=== PATIENT | male | born 1955 | race Caucasian/White ===

== ENCOUNTER → 2017-06-01 | Outpatient (CLI) | payer BC, OTHER ==
[~2017-06-01] MED LIST: HYDROCODON-ACE1 EAC5 PO; MELOXICAM7.5 MG PO; MOBIC7.5 MG PO; TIZANIDINE HCL 22 M1 PO; VOLTAREN GEL 1100 G1 TOP; ZANAFLEX2 M1 PO
== END ==
LOC: RAD 10:38
DX: J45.41 Moderate persistent asthma with (acute) exacerbation (principal); J98.11 Atelectasis; R91.8 Other nonspecific abnormal finding of lung field

== ENCOUNTER → 2018-01-18 | Outpatient (CLI) | payer BC, OTHER | LOC: RAD 09:01 → SPEECH 09:01 → RAD 15:48 | DX: R13.12 Dysphagia, oropharyngeal phase (principal); R05 Cough; R06.00 Dyspnea, unspecified; R06.2 Wheezing ==

== ENCOUNTER → 2020-02-16 | Outpatient (CLI) | payer OTHER | LOC: RAD 13:45 | PROVIDERS: ATTEND Internal Medicine | DX: J45.30 Mild persistent asthma, uncomplicated (principal) ==

== ENCOUNTER → 2020-03-26 | Outpatient (CLI) | payer OTHER | LOC: LAB 08:11 | PROVIDERS: ATTEND Internal Medicine | DX: Z01.812 Encounter for preprocedural laboratory examination (principal); Z20.828 Contact with and (suspected) exposure to other viral communicable diseases ==

== ENCOUNTER → 2020-03-30 | Outpatient (CLI) | payer OTHER | LOC: CANPRECLI → PUL 09:42 | PROVIDERS: ATTEND Internal Medicine | DX: Z53.9 Procedure and treatment not carried out, unspecified reason (principal) ==